=== PATIENT | female | born 1990 | race Caucasian/White ===

== ENCOUNTER 2018-01-03 21:18 | Emergency (ER) | payer OTHER ==
[~2018-01-03] VITALS: Ht 165.1 cm; Wt 53.5 kg
[2018-01-03 21:18] VITALS: BP_SYST 139
[2018-01-03 22:14] LABS: BASOPHILS # (AUTO) 0.1 K/uL (0.0-0.2); BASOPHILS % (AUTO) 0.7 % (0.0-2.0); EOSINOPHILS # (AUTO) 0.1 K/uL (0.0-0.4); EOSINOPHILS % (AUTO) 0.6 % (0.0-4.0); HEMATOCRIT 34.5 % (36-48); HEMOGLOBIN 11.3 g/dL (12.0-16.0); LYMPHOCYTES # (AUTO) 1.9 K/uL (1.0-5.5); LYMPHOCYTES % (AUTO) 12.6 % (20.5-51.5); MEAN CORPUSCULAR HEMOGLOBIN 28 pg (27-31); MEAN CORPUSCULAR HGB CONC 33 % (32-36); MEAN CORPUSCULAR VOLUME 85 fL (79.0-98.0); MONOCYTES # (AUTO) 0.6 K/uL (0.0-1.0); MONOCYTES % (AUTO) 4.2 % (1.7-9.3); NEUTROPHILS # (AUTO) 12.1 K/uL (1.8-7.7); NEUTROPHILS % (AUTO) 81.9 % (40.0-70.0); PLATELET COUNT (AUTO) 289 K/uL (130-430); RED BLOOD CELL COUNT(AUTO) 4.09 MIL/uL (4.2-6.2); RED CELL DISTRIBUTION WIDTH 14.6 % (9.0-15.0); WHITE BLOOD COUNT (AUTO) 14.8 K/uL (4.8-10.8)
[2018-01-03] MEDS ORDERED: MORPHINE 4 MG/ML INJ. SYRINGE IVP ONE (22:15)
[2018-01-03] MEDS ORDERED: KETOROLAC TROMETHAMINE 30 MG VIAL IVP ONE (22:15)
[2018-01-03 22:28] LABS: CALCIUM 8.9 mg/dL (8.4-11.0); CREATININE 0.42 mg/dL (0.55-1.30); POTASSIUM 3.8 mmol/L (3.5-5.1)
[2018-01-03 22:34] LABS: ALBUMIN 3.7 g/dL (3.4-4.8); TOTAL BILIRUBIN 0.2 mg/dL (0.0-1.0)
[2018-01-04 01:07] VITALS: BP_SYST 128
== END 2018-01-04 01:07 | disposition home or self-care (01) ==
LOC: SED 21:18
DX: O20.9 Hemorrhage in early pregnancy, unspecified (principal); Z3A.01 Less than 8 weeks gestation of pregnancy; Z88.0 Allergy status to penicillin; Z86.2 Personal history of diseases of the blood and blood-forming organs and certain disorders involving the immune mechanism
CPT/HCPCS: 36415; 80053; 85025; 86886; 86900; 86901; 96374; 96375; 99284; J1885; J2270

== ENCOUNTER 2020-09-07 08:24 | Day surgery (SDC) | payer OTHER, SELFPAY ==
[~2020-09-07] VITALS: Ht 167.6 cm; Wt 63.5 kg
[2020-09-07 09:45] LABS: HCG,QUAL RESULT NEGATIVE (NEGATIVE)
[2020-09-07] MEDS ORDERED: EPINEPHrine 1 MG/ML AMP IV ONE (11:20)
[2020-09-07] MEDS ORDERED: LIDOCAINE/EPI 1% 1:100000 20 ML VIAL INJ ONE (11:20)
[2020-09-07] MEDS ORDERED: PROPOFOL 200MG/ 20ML VIAL (DIPRIVAN) IV ONE (11:20)
[2020-09-07] MEDS ORDERED: MIDAZOLAM HCL 5 MG/5 ML VIAL IVP ONE (11:20)
[2020-09-07] MEDS ORDERED: ROCURONIUM BROMIDE 10 MG/ML (ZEMURON) IV ONE (11:20)
[2020-09-07] MEDS ORDERED: DEXAMETHASONE SOD PHOSPHATE 4 MG/ML VIAL IVP ONE (11:20)
[2020-09-07] MEDS ORDERED: ONDANSETRON HCL 4 MG/2 ML VIAL IVP ONE (11:20)
[2020-09-07] MEDS ORDERED: OXYMETAZOLINE HCL 0.05% NASAL SPRAY NS ONE (11:20)
[2020-09-07] MEDS ORDERED: MUPIROCIN 2% TOPICAL OINTMENT 22 GM TP ONE (11:20)
[2020-09-07] MEDS ORDERED: NS IRRIG SOLN 1000 ML IR ONE (11:20)
[2020-09-07] MEDS ORDERED: LEVOFLOXACIN 500 MG/D5W 100 ML PIGGYBACK IV ONE (11:20)
[2020-09-07] MEDS ORDERED: BACITRACIN ZINC 15 GM TOPICAL OINTMENT TP ONE (11:20)
[2020-09-07] MEDS ORDERED: LIDOCAINE 2%, 20 ML MDV INJ ONE (11:20)
[2020-09-07] MEDS ORDERED: fentaNYL CITRATE 250 MCG/5 ML AMP IV ONE (11:20)
[2020-09-07] MEDS ORDERED: WATER FOR IRRIGATION,STERILE 1,000 ML IRRIG.SOLN IR ONE (11:20)
[2020-09-07] MEDS ORDERED: LR 1,000 ML IV.SOLN IV ONE (11:20)
[2020-09-07] MEDS ORDERED: ISOFLURANE 15 MIN GAS INH ONE (11:20)
[2020-09-07] MEDS ORDERED: SUGAMMADEX SODIUM 200 MG/2 ML VIAL IV ONE (11:20)
[2020-09-07] MEDS ORDERED: MEPERIDINE HCL/PF 25 MG/ML DISP.SYRIN IVP PRN (12:30)
[2020-09-07] MEDS ORDERED: HYDROmorphone 1 MG INJ. 1 MG/ML AMPUL IVP PRN ×2 (12:30)
[2020-09-07] MEDS ORDERED: METOCLOPRAMIDE HCL 10 MG/2 ML VIAL IVP PRN (12:30)
[2020-09-07] MEDS ORDERED: LR 1,000 ML IV SCH (12:30)
[2020-09-07] MEDS ORDERED: ONDANSETRON HCL 4 MG/2 ML VIAL IVP PRN (12:30)
[2020-09-07] MEDS ORDERED: MIDAZOLAM HCL 2 MG/2 ML VIAL (VERSED) IVP PRN (12:30)
[2020-09-07] MEDS ORDERED: METOCLOPRAMIDE HCL 10 MG/2 ML VIAL ONE (14:36)
[2020-09-07 15:20] VITALS: BP_SYST 111
== END 2020-09-07 16:05 | disposition home or self-care (01) ==
LOC: SDS 08:24 → SMU 08:26 → SDS 16:05
PROVIDERS: ATTEND Otolaryngology
DX: D37.05 Neoplasm of uncertain behavior of pharynx (principal); J34.89 Other specified disorders of nose and nasal sinuses; D38.5 Neoplasm of uncertain behavior of other respiratory organs; R09.82 Postnasal drip; H60.63 Unspecified chronic otitis externa, bilateral; Z20.828 Contact with and (suspected) exposure to other viral communicable diseases; F32.9 Major depressive disorder, single episode, unspecified; F17.200 Nicotine dependence, unspecified, uncomplicated; N92.0 Excessive and frequent menstruation with regular cycle; Z88.0 Allergy status to penicillin; Z79.899 Other long term (current) drug therapy
CPT/HCPCS: 30140; 30520; 31255; 31256; 36415; 42808; 84703 ×2; 87070; 87075; 87101; 87116; 87186; 88305; 88311; 88342; C9399; J0171; J1100; J1956; J2001; J2250; J2405; J2704; J2765; J3010; J7120; U0003

== ENCOUNTER 2024-05-18 08:49 | Day surgery (SDC) | payer OTHER ==
[~2024-05-18] VITALS: Ht 165.1 cm; Wt 72.6 kg
[~2024-05-18 08:49] MED LIST: CEFAZOLIN SOD 2 GM in D5W 50 ML IV ONE
[2024-05-18] MEDS ORDERED: CEFAZOLIN SOD 2 GM in D5W 50 ML IV ONE (09:30)
[2024-05-18] MEDS ORDERED: DEXAMETHASONE SOD PHOSPHATE 4 MG/ML VIAL ONE (10:50)
[2024-05-18] MEDS ORDERED: ACETAMINOPHEN I.V. 1000 MG 100 ML IV ONE (11:25)
[2024-05-18] MEDS ORDERED: LR 1,000 ML IV SCH (11:30)
[2024-05-18] MEDS ORDERED: MIDAZOLAM HCL 2 MG/2 ML VIAL (VERSED) IVP PRN (11:30)
[2024-05-18] MEDS ORDERED: METOCLOPRAMIDE HCL 10 MG/2 ML VIAL IVP PRN (11:30)
[2024-05-18] MEDS ORDERED: MEPERIDINE HCL/PF 25 MG/ML DISP.SYRIN IVP PRN (11:30)
[2024-05-18] MEDS ORDERED: HYDROmorphone 1 MG/ML INJ. CARTRIDGE IVP PRN (11:30)
[2024-05-18] MEDS ORDERED: ONDANSETRON HCL 4 MG/2 ML VIAL IVP PRN (12:00)
[2024-05-18] MEDS ORDERED: HYDROcodone/ACETAMIN 5-325 MG TAB (NORCO/ VICODIN) PO PRN (12:00)
[2024-05-18] MEDS ORDERED: OXYCODONE/ACETAMINOPHEN 5-325 TABLET PO PRN ×2 (12:00)
[2024-05-18 12:27] VITALS: PULSE 63; RESP 18; TEMP 97.5; O2SAT 100
[2024-05-18 12:45] VITALS: BP_SYST 107
[2024-05-18] MEDS ORDERED: HYDROmorphone 1 MG/ML INJ. CARTRIDGE ONE (13:17)
[2024-05-18] MEDS: HYDROmorphone 1 MG/ML INJ. CARTRIDGE IVP PRN (13:20)
== END 2024-05-18 14:45 | disposition home or self-care (01) ==
LOC: SDS 08:49 → SMU 08:50 → SDS 14:45
PROVIDERS: ATTEND Specialist
DX: Z30.2 Encounter for sterilization (principal); Z64.1 Problems related to multiparity; Z98.890 Other specified postprocedural states; Z79.899 Other long term (current) drug therapy
CPT/HCPCS: 87081; 58670; 88302; J3490 ×2; J0690; J1100; J1885; J3465; J2405; J2704; J3010; J1170; J7060; J7120; C1727; J0131